=== PATIENT | female | born 1960 | race Caucasian/White ===

== ENCOUNTER → 2018-06-18 14:56 | Outpatient (CLI) | payer BC, SELFPAY ==
--- NOTE | 2018-06-18 15:07 | MR_ITS ---
MR lumbar spine wo con Ordering Physician: Wanda Ramirez APRN Patient Age: 57 years: Female HISTORY: ITS.REASON: LOW BACK PAIN Low back pain for 6 months Bilateral posterior leg pain t extends to mid thigh. TECHNIQUE: Sagittal STIR, T1, T2, axial T1 and T2. On 1.5T Siemens wide bore MRI. 3-D MR myelogram image set obtained & performed on MRI workstation. Additional sagittal thin section T2 weighted dataset obtained from this latter acquisition as well (---76 CPT) COMPARISON :No prior studies for comparison FINDINGS Lumbar Vertebral bodies appear intact no compression fracture or vertebral lesion. . T10-11: mild disc bulge most notable at foramen; along with bilateral facet hypertrophy yields mild narrowing of the spinal canal along with moderate bilateral foraminal encroachment T11/12. Marked degenerative disc space narrowing anteriorly, with prominent reactive endplate signal changes about the narrowed disc. Anterior marginal osteophytes most evident at this level. Posterior disc is intact with only scant if any disc bulge. There is mild facet hypertrophy bilaterally with minor foraminal encroachment.. Very slight wedging at T11 vertebral likely congenital although could be accentuated by the the inferior endplate degenerative changes T12/L1: Disc intact. Unremarkable. L1/L2.: Disc intact with only question Scant disc bulge at right foramen. Negligible.. Mild facet hypertrophy Note Conus ends appropriately at L1 level L2/L3. Disc intact. Moderate facet &posterior element hypertrophy L3/L4 1 disc intact. Moderate to generous facet and posterior element hypertrophy. Minor foraminal encroachment L4/5. Disc intact with disc height maintained. Minor foraminal disc bulge bilateral most notable is the very prominent facet arthropathy with with exuberant hypertrophy as well as prominent increased fluid signal at both right and left facet joint the features yield moderate bilateral foraminal and recess encroachment. Borderline central canal stenosis. L5/S1. Disc maintained and intact. Gcyg-nu-onmgniyo facet hypertrophy. The superior sacrum unremarkable. Superior SI joints unremarkable. 3-D MR myelogram image set shows narrowing, tapering of the thecal sac at L4/5 due to the prominent, exuberant facet hypertrophy narrowing the spinal canal posteriorly. The increased fluid signal at the facet joints bilaterally at L4/5 also evident on the mammogram image set. With slight narrowing of the spinal canal at L3/4, L2/3 due to the posterior element hypertrophy. Myelogram signal from the thecal sac fluid more superiorly at T10-11 is where there is suggestion of mild spinal stenosis due to the posterior element hypertrophy IMPRESSION: 1. Facet arthropathy most evident at lower L-spine yields spinal stenosis at L4/5 ; With degenerative disc changes most evident lower T-spine. L4/5.: Mild spinal stenosis mainly due to the Exuberant facet hypertrophy, & very prominent facet fluid due to arthritis/ arthropathy-bilateral ... Also minimal disc bulge. ... Overall features yield moderate bilateral recess & foraminal encroachment; as well as mild central canal stenosis L3/4, L2/3:. Moderate facet hypertrophy at L3/4/L2/3 which yields only borderline spinal stenosis at these levels.. T10-11. Prominent facet hypertrophy, along with mild foraminal disc bulge, yields moderate bilateral foraminal encroachment as well as borderline/mild central canal [id number]. T 11/12... Marked degenerative disc space narrowing and changes- with prominent reactive endplate signal changes most evident anterior.
--- NOTE | 2018-06-18 15:07 | MR_ITS ---
MR 3-d myelogram/MRCP Ordering Physician: Wanda Ramirez APRN Patient Age: 57 years: Female HISTORY: ITS.REASON: LOW BACK PAIN TECHNIQUE: *This report goes with the 3-D MR myelogram image set CPT code* Sagittal STIR, T1, T2, axial T1 and T2. On 1.5T Siemens wide bore MRI. 3-D MR myelogram image set obtained & performed on MRI workstation. Additional sagittal thin section T2 weighted dataset obtained from this latter acquisition as well (---76 CPT) COMPARISON : FINDINGS *This report goes with the 3-D MR myelogram image set CPT code... The standard MRI lumbar spine was reported under a different head but is a same report* Lumbar Vertebral bodies appear intact no compression fracture or vertebral lesion. T10-11: mild disc bulge most notable at foramen; along with bilateral facet hypertrophy yields mild narrowing of the spinal canal along with moderate bilateral foraminal encroachment T11/12. Marked degenerative disc space narrowing anteriorly, with prominent reactive endplate signal changes about the narrowed disc. Anterior marginal osteophytes most evident at this level. Posterior disc is intact with only scant if any disc bulge. There is mild facet hypertrophy bilaterally with minor foraminal encroachment.. Very slight wedging at T11 vertebral likely congenital although could be accentuated by the the inferior endplate degenerative changes T12/L1: Disc intact. Unremarkable. L1/L2.: Disc intact with only question Scant disc bulge at right foramen. Negligible.. Mild facet hypertrophy Note Conus ends appropriately at L1 level L2/L3. Disc intact. Moderate facet posterior element hypertrophy L3/L4 1 disc intact. Moderate to generous facet and posterior element hypertrophy. Minor foraminal encroachment L4/5. Disc intact with disc height maintained. Minor foraminal disc bulge bilateral most notable is the very prominent facet arthropathy with with exuberant hypertrophy as well as prominent increased fluid signal at both right and left facet joint the features yield moderate bilateral foraminal and recess encroachment. Borderline central canal stenosis. L5/S1. Disc maintained and intact. [id number]-[id number] facet hypertrophy. The superior sacrum unremarkable. Superior SI joints unremarkable. 3-D MR myelogram image set shows narrowing, tapering of the thecal sac at L4/5 due to the prominent, exuberant facet hypertrophy narrowing the spinal canal posteriorly. The increased fluid signal at the facet joints bilaterally at L4/5 also evident on the mammogram image set. With slight narrowing of the spinal canal at L3/4, L2/3 due to the posterior element hypertrophy. Myelogram signal from the thecal sac fluid more superiorly at T10-11 is where there is suggestion of mild spinal stenosis due to the posterior element hypertrophy IMPRESSION: 1. Facet arthropathy most evident at lower L-spine yields spinal stenosis at L4/5 ; With degenerative disc changes most evident lower T-spine. L4/5.: Mild spinal stenosis mainly due to the Exuberant facet hypertrophy, & very prominent facet fluid due to arthritis/ arthropathy-bilateral ... Also minimal disc bulge. ... Overall features yield moderate bilateral recess & foraminal encroachment; as well as mild central canal stenosis L3/4, L2/3:. Moderate facet hypertrophy at L3/4/L2/3 which yields only borderline spinal stenosis at these levels.. T10-11. Prominent facet hypertrophy, along with mild foraminal disc bulge, yields moderate bilateral foraminal encroachment as well as borderline/mild central canal [id number]. T 11/12... Marked degenerative disc space narrowing and changes- with prominent reactive endplate signal changes most evident anterior.
== END ==
PROVIDERS: PCP Nurse Practitioner Family; Visit Provider Nurse Practitioner Family
DX: M54.5 Low back pain (principal)
CPT/HCPCS: 72148; 76376

== ENCOUNTER → 2019-01-16 14:17 | Outpatient (CLI) | payer BC, SELFPAY ==
--- NOTE | 2019-01-16 14:19 | MM_ITS ---
PROCEDURE: MM DIG SCREENING MAMM BI W/CAD Patient Age:58Y CLINICAL INDICATION: SCREENING 58-year-old routine screening mammogram. No hormones but no new complaints. Family history.: Mother with breast cancer postmenopausal Prior studies at [facility] COMPARISON: Remote prior film screening MAMMO from 02/25/2004 from [facility] used TECHNIQUE: Standard CC and MLO images were obtained. R2 CAD reviewed. FINDINGS: Generalized fatty replacement and low-density breast-this architecture most optimal mammography. No dominant nor suspicious mass. No suspicious calcifications CAD highlights no significant areas of concern either . The prior film screen studies are limited utility for comparison but do show similar overall architecture and patterns with progressive fatty change since prior study.-Again note new areas of concern no significant change Bilateral follow-up 1 year recommended IMPRESSION: Negative mammogram. No areas of concern. But no significant change bilateral follow-up 1 the year recommended BI-RAD Category: 1 Negative FOLLOW-UP: 1YR 1 Year Follow-up (A letter has been sent to the patient regarding results of the study.) Dictated by: Edilson Gupta MD 01/18/2019 10:29 Electronically signed by Edilson Gupta MD in [place] 01/23/2019 10:12
== END ==
PROVIDERS: PCP Nurse Practitioner Family; Visit Provider Nurse Practitioner Family
DX: Z12.31 Encounter for screening mammogram for malignant neoplasm of breast (principal)
CPT/HCPCS: 77067

== ENCOUNTER → 2019-09-19 08:37 | Outpatient (CLI) | payer OTHER, SELFPAY ==
[2019-09-19 13:46] LABS: Basophils % 0.6 % (0.1-2.0); Eosinophils # 0.2 K/mm3 (0.0-0.4); Eosinophils % 3.4 % (0.1-12.0); Hematocrit 33.1 % (37.0-47.0); Hemoglobin 11.5 g/dL (12.2-16.2); Lymphocytes % 16.1 % (10-50); Mean Corpuscular HGB Conc 34.7 g/dL (31.8-35.4); Mean Corpuscular Hemoglobin 30.8 pg (27.0-31.2); Mean Corpuscular Volume 88.7 fl (81-99); Mean Platelet Volume 9.1 fl (7.4-10.4); Monocytes # 0.2 K/mm3 (0.1-1.0); Neutrophils # 4.9 K/mm3 (1.8-7.8); Neutrophils % 76.8 % (37.0-80.0); Platelet Count 145 K/mm3 (142-424); Red Blood Count 3.74 M/mm3 (4.20-5.40); Red Cell Distribution Width 13.8 % (11.5-17.5); White Blood Count 6.4 K/mm3 (4.8-10.8)
[2019-09-19 14:01] LABS: Alanine Aminotransferase 8 U/L (12-78); Albumin Level 3.7 g/dl (3.5-5.0); Albumin/Globulin Ratio 1.3 (1.1-1.8); Alkaline Phosphatase 103 U/L (38-126); Anion Gap 14.1 mEq/L (5-15); Aspartate Amino Transferase 18 U/L (14-36); Bilirubin,Total 0.7 mg/dl (0.2-1.3); Blood Urea Nitrogen 10 mg/dl (7-17); Carbon Dioxide 26 mmol/L (22.0-30.0); Chloride 93 mmol/L (98-107); Estimated Glomerular Filt Rate 57 ml/min (>60); GFR (African American) 69 ML/MIN (>60); Globulin 2.8 g/dL (1.3-3.2); Glucose 81 mg/dl (74-100); Potassium 4.1 mmoL/L (3.5-5.1); Sodium 129 mmol/L (136-145); Total Protein,Serum 6.5 g/dl (6.3-8.2)
== END ==
PROVIDERS: Visit Provider Physician Assistant
DX: H93.13 Tinnitus, bilateral (principal)
CPT/HCPCS: 36415; 80053; 85025

== ENCOUNTER → 2019-09-20 10:39 | Outpatient (CLI) | payer OTHER, SELFPAY ==
--- NOTE | 2019-09-20 10:49 | MR_ITS ---
PROCEDURE: MR HEAD/BRAIN WO/W CON CLINICAL INDICATION: TINNITUS, BILATERAL Fatigue. Family hx of glioblastoma. COMPARISON: No exams were available for comparison TECHNIQUE: Routine multiplanar multi echo sequences are performed without gadolinium enhancement.18ml prohance given. Lot: [id number] exp: Aug 2019 bun: 10 cre: 1.0 gfr: 57 FINDINGS: No midline shift, mass effect, intracranial hemorrhage, or hydrocephalus is evident. The cerebellopontine angles, cerebellum, and brainstem have an unremarkable appearance. No enhancing lesions are evident. Unremarkable periventricular white matter signal intensity. The pituitary, optic chiasm, corpus callosum, and craniocervical junction have an unremarkable appearance. No mastoid effusion or sinus air-fluid level. IMPRESSION: Negative MRI of the brain without and with gadolinium enhancement Dictated by: Hamzah Davis MD 09/21/2019 10:17 Electronically signed by Hamzah Davis MD in [place] 09/21/2019 10:17
== END ==
PROVIDERS: PCP Nurse Practitioner Family; Visit Provider Physician Assistant
DX: H93.13 Tinnitus, bilateral (principal)
CPT/HCPCS: 70553; A9576

== ENCOUNTER → 2019-10-28 15:07 | Outpatient (CLI) | payer OTHER, SELFPAY ==
--- NOTE | 2019-10-28 15:14 | XR_ITS ---
PROCEDURE: XR FOOT RT MIN 3V CLINICAL INDICATION: RT FOOT PAIN Posttraumatic pain COMPARISON: No exams were available for comparison FINDINGS: No fracture or dislocation. No lytic or blastic change. There is normal mineralization. The joint spaces are well-preserved. No significant degenerative/arthritic changes. No erosive changes evident. Other findings:There is mild soft tissue swelling along the dorsal aspect of the midfoot. There is a cystic area in the proximal aspect of the medial cuneiform with mild osteoarthritic change of the navicular cuneiform joint medially IMPRESSION: Soft tissue swelling with degenerative change, no acute fracture Dictated by: Hamzah Davis MD 10/28/2019 15:37 Hamzah Davis MD in [place] 10/28/2019 15:37
== END ==
PROVIDERS: PCP Nurse Practitioner Family; Visit Provider Nurse Practitioner Family
DX: M79.671 Pain in right foot (principal)
CPT/HCPCS: 73630